=== PATIENT | female | born 1965 | race Caucasian/White ===

== ENCOUNTER → 2018-02-09 | Day surgery (SDC) | payer BC ==
[2018-01-31 10:24] VITALS: BMI 50.0
--- NOTE | 2018-02-01 16:09 | PAT Medication Instructions ---
Service Date Feb 01, 2018. Current Home Medication List Levothyroxine Sodium (Synthroid), 50 MCG PO QAM Levothyroxine Sodium (Synthroid), 200 MCG PO QAM Medication Instructions For Your Scheduled Surgery - Take the following medications the morning of surgery with a sip of water: Levothyroxine Sodium (Synthroid), 50 MCG PO QAM Levothyroxine Sodium (Synthroid), 200 MCG PO QAM If you have any questions please call us at [phone] or [phone] or [phone]
[2018-02-02 11:45] VITALS: BMI 49.0
[2018-02-02 12:34] LABS: BASO % 0.2 %; BASO ABS # 0.01 K/uL (0-0.2); EOS % 1.4 %; EOS ABS # 0.08 K/uL (0-0.5); HEMATOCRIT 39.6 % (37-47); HEMOGLOBIN 13.9 g/dL (12.0-16.0); IG# 0.01 K/uL (0.00-0.02); LYMPH % 41.8 %; LYMPH ABS # 2.42 K/uL (1.2-3.4); MEAN CELL VOLUME 85.2 fL (80-100); MEAN CORPUSCULAR HEMOGLOBIN 29.9 pg (25-34); MEAN CORPUSCULAR HGB CONC 35.1 g/dl (32-36); MEAN PLATELET VOLUME 9.3 fL (7.4-10.4); MONO % 5.5 %; MONO ABS # 0.32 K/uL (0.11-0.59); NEUT % 50.9 %; NEUT ABS # 2.95 K/uL (1.4-6.5); PLATELET COUNT 302 K/uL (130-400); RED CELL DISTRIBUTION WIDTH CV 13.2 % (11.5-14.5); RED CELL DISTRIBUTION WIDTH SD 40.6 fL (36.4-46.3); WHITE BLOOD COUNT 5.79 K/uL (4.8-10.8)
[2018-02-02 12:40] LABS: CALCIUM 8.6 mg/dl (8.5-10.1); CREATININE 0.86 mg/dl (0.60-1.20); POTASSIUM 3.5 mmol/L (3.5-5.1)
[~2018-02-09] VITALS: Ht 152.4 cm; Wt 115.2 kg
[~2018-02-09] MED LIST: ATROPINE SULFATE 0.1 MG/ML 5ML SYR IV PRN; CHECK SCOPOLAMINE PATCH PLACEMENT SCH; DEXAMETHASONE SOD INJ 4 MG/ML VIAL ONE; EpHEDrine SULFATE INJ 50 MG/ML AMP IV PRN; FENTANYL CITRATE INJ 50 MCG/1 ML 2 ML VIAL IV PRN; FENTANYL CITRATE INJ 50 MCG/1 ML 2 ML VIAL ONE; IBUPROFEN 600 MG TAB PO PRN; KETOROLAC TROMETHAMINE 30 MG/ML VIAL IV. PRN; KETOROLAC TROMETHAMINE 30 MG/ML VIAL ONE; LACTATED RINGER'S 1000ML 1,000 ML IV SCH; LEVO200T PO; LEVO50TA PO; LIDOCAINE 2% 20 MG/ML 5ML SYR ONE; MIDAZOLAM HCL 1 MG/ML 2ML VIAL ONE; MTR600X PO; ONDANSETRON INJ 2 MG/ML 2 ML VIAL IV PRN; ONDANSETRON INJ 2 MG/ML 2 ML VIAL ONE; OXYCODONE/ACETAMINOPHEN 5-325 TAB PO PRN; PROMETHAZINE HCL INJ 25 MG in SODIUM CHLORIDE 0.9% 50ML 50 ML IV PRN; PROPOFOL IV EMULSION 10 MG/ML 20 ML VIAL ONE; SCOPOLAMINE 1.5 MG TDSY TD SCH; SODIUM CHLORIDE 0.9% 1000ML 1,000 ML IV SCH
[2018-02-09 05:37] VITALS: BP 175/83; PULSE 82; TEMP 36.9; O2SAT 98; Ht 152.4 cm; Wt 115.2 kg
--- NOTE | 2018-02-09 06:57 | History & Physical Bridge Note ---
H&P Re-Evaluation Bridge Note: I have examined the patient, reviewed the History & Physical and in the interval since the performance of the History & Physical I have noted the following changes of clinical significance: No changes noted
--- NOTE | 2018-02-09 07:56 | [facility] Post Operative Brief Note ---
Immediate Operative Summary Operative Date Feb 09, 2018. Pre-Operative Diagnosis Post menopausal bleeding Post-Operative Diagnosis Same as preop Procedure(s) Performed Hysteroscopy, Dilatation and Curettage with Myosure polypectomy Surgeon Dr. Arriaga Boiler Coverer Surgeon(s) None Estimated Blood Loss 5 ml Findings Consistent with Post-Op Diagnosis Fluids (cc crystalloids) 700 ml Specimens A: Endometrial polyp B: Endometrial curettings Drains None Anesthesia Type General Complication(s) none Disposition Disposition: Recovery Room / PACU
--- NOTE | 2018-02-09 08:07 | Discharge Instructions ---
Discharge Instructions Date of Service Feb 09, 2018. Admission Reason for Admission: Post Menopausal Bleeding Discharge Discharge Diagnosis / Problem: Post-op Discharge Goals Goal(s): Routine recovery after surgery Activity Recommendations Activity Limitations: as noted below ACTIVITY RECOMMENDATIONS: * Avoid tampons, douching, hot tubs, pools, and intercourse until bleeding has stopped. * May shower as usual. * No strenuous activity for 24-48 hours. After 24-48 hours, you can do anything you feel like doing (driving and sports are okay). RETURN TO SCHOOL/WORK: * You may return to school or work after 24 hours unless specified by your physician. DIET: * Resume previous diet. MEDICATIONS: Resume previous medications unless instructed otherwise by your surgeon. Ibuprofen 200mg 2-3 tablets every 4-6 hours as needed --OR-- Aleve 2 tablets every 8-12 hours as needed for post-operative discomfort Medications are over the counter. Tylenol may be used if above medications are contraindicated or not preferred. Medication should be taken with food or milk. do not take on an empty stomach. SPECIAL CARE INSTRUCTIONS: * Check temperature twice daily for one week. Report any elevation over 101 degrees. * Call office if you experience increased pelvic pain or discomfort not relieved by pain medicine, if you have foul smelling vaginal discharge, if you have bleeding that is heavier than a normal menstrual flow. If you are changing a maxi pad every 1- 2 hours, this is too heavy. vaginal spotting is normal for 1-2 weeks. FOLLOW UP VISIT: Call your doctor's office for a post-operative visit. . Current Hospital Diet Patient's current hospital diet: Discharge Diet Recommended Diet: Regular Diet Procedures Procedures Performed: Hysteroscopy, Dilatation and Curettage with Myosure polypectomy Pending Studies Studies pending at discharge: no Medical Emergencies . Who to Call and When: Medical Emergencies: If at any time you feel your situation is an emergency, please call 911 immediately. . Non-Emergent Contact Non-Emergency issues call your: Specialist Contact Number: [phone] . . "Provider Documentation" section prepared by Morena Moseley. .
--- NOTE | 2018-02-09 08:16 | [facility] Operative Report ---
Operative Report Operative Date Feb 09, 2018. Pre-Operative Diagnosis Post menopausal bleeding Post-Operative Diagnosis Same as preop Procedure(s) Performed Hysteroscopy, Dilatation and Curettage with Myosure polypectomy Surgeon Dr. Arriaga Academic Affairs Assistant Surgeon(s) None Estimated Blood Loss 5 ml Findings 1. 10 cm anteverted uterus 2. Bilateral tubal ostia visualized 3. Polyp noted at the right tubal ostia 4. Polypoid tissue at the posterior aspect of the uterus 4. No fibroids noted Fluids 700 ml Specimens A: Endometrial polyp B: Endometrial curettings Drains None Anesthesia Type General Complication(s) none Disposition Recovery Room / PACU Description of Procedure This is a 52-year-old with post-menopausal bleeding. Risks, benefits and alternatives discussed with the patient at length. Informed consent was obtained. The patient was taken to the operating room. General anesthesia was obtained without difficulty. She was then prepped and draped in the lithotomy position in [facility]. Examination under anesthesia revealed a top normal size anteverted uterus. No adnexal masses were palpable. Straight catheterization was performed without difficulty. A weighted speculum was placed inside the vagina. The anterior lip of the cervix grasped with single- tooth tenaculum. The cervix was gently dilated to ensure reduction with the operative hysteroscope. The hysteroscope was introduced into the uterine fundus. Both ostia were easily visualized. Polyp noted at the right tubal ostia. The cavity appeared smooth. There was some thickening of endometrium with some scant polypoid tissue on the posterior wall. The Myosure device was then introduced into the uterine cavity and the polyp and polypoid tissue was resected. The hysteroscope and myosure device were removed. Sharp curettage followed. Tissue was obtained. There was polypoid tissue noted in the specimen. All instruments removed from the vagina. Hemostasis was achieved. The patient was awakened and taken to the recovery room in stable condition. I attest to the content of the Intraoperative Record and any orders documented therein. Any exceptions are noted below.
[2018-02-09 08:40] VITALS: BP 161/86; PULSE 78; TEMP 36.5; O2SAT 95
--- NOTE | 2018-02-09 08:55 | Anesthesiology Progress Note ---
Anesthesia Post Op Note Date & Time Feb 09, 2018 at 08:54 Vital Signs Pain Intensity: 0 Vital Signs Past 12 Hours Date Time Temp Pulse Resp B/P (MAP) Pulse Ox O2 Delivery O2 Flow Rate FiO2 02/09/18 08:30 36.1 74 16 152/89 94 Room Air 02/09/18 08:20 75 16 160/87 94 Room Air 02/09/18 08:10 73 16 165/93 97 Oxymask 3 02/09/18 08:00 36.0 84 14 169/94 95 Oxymask 5 02/09/18 05:37 36.9 82 18 175/83 (113) 98 Room Air Notes Mental Status: alert / awake / arousable, participated in evaluation Pt Amnestic to Procedure: Yes Nausea / Vomiting: adequately controlled Pain: adequately controlled Airway Patency, RR, SpO2: stable & adequate BP & HR: stable & adequate Hydration State: stable & adequate Anesthetic Complications: no major complications apparent
[2018-02-09 09:10] VITALS: BP 147/83; PULSE 75; TEMP 36.3; O2SAT 96
[2018-02-09 09:40] VITALS: BP 162/85; PULSE 77; TEMP 36.7; O2SAT 95
== END | disposition home or self-care (01) ==
LOC: C.ACU 04:58
PROVIDERS: ATTEND Obstetrics & Gynecology Obstetrics
DX: N95.0 Postmenopausal bleeding (principal); N84.0 Polyp of corpus uteri; E03.9 Hypothyroidism, unspecified; J45.909 Unspecified asthma, uncomplicated; Z88.1 Allergy status to other antibiotic agents; Z85.850 Personal history of malignant neoplasm of thyroid; Z79.899 Other long term (current) drug therapy; E66.01 Morbid (severe) obesity due to excess calories; Z68.42 Body mass index [BMI] 45.0-49.9, adult